=== PATIENT | male | born 1950 | race Caucasian/White ===

== ENCOUNTER 2018-07-04 16:49 | Emergency (ER) | payer OTHER, MEDICARE ==
[2018-07-04] MEDS ORDERED: ONDANSETRON 4 MG/2 ML VIAL IVP ONE (17:13)
[2018-07-04] MEDS ORDERED: NS 1,000 ML IV ONE (17:13)
--- NOTE | 2018-07-04 17:16 | EDPHY ---
H & P Stated Complaint: vomiting thursday and thursday,nausea today,diarrhea,fatigue Time Seen by Provider: 07/04/18 17:02 HPI/ROS: CHIEF COMPLAINT: Nausea, vomiting, and diarrhea HISTORY OF PRESENT ILLNESS: This is a 68-year-old male in general good health who presents with nausea, vomiting, and diarrhea. He began vomiting night before last and vomited throughout the night. He vomited once last night. Yesterday developed diarrhea, which seems to be slowing, he has had 3 diarrheal stools today. He continues with nausea but has not vomited today. He has been able to eat some saltine crackers and banana and has been able to take some fluids. He feels fatigued. He denies abdominal pain. He has not had fever. No urinary symptoms. REVIEW OF SYSTEMS: A ten system review of systems was performed and is negative with the exception of the items mentioned in the HPI. Past medical history: 1. Hyperlipidemia 2. Depression Past surgical history: 1. Hip replacement 2. Hernia repair 3. Bunionectomy Social history: He lives with his . He does not use tobacco products. He drinks 1-2 alcoholic beverages 5 times weekly. 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 General Appearance: Alert. Vital signs reviewed. Blood pressure 125/76. Heart rate 56 at triage. Afebrile. Eyes: Pupils equal and round, no conjunctival injection, no discharge. Anicteric. ENT, Mouth: Mucous membranes are moist, no oropharyngeal erythema or edema. Neck: No lymphadenopathy, supple. Respiratory: Lungs are clear to auscultation; no wheezes, rales, or rhonchi. Cardiovascular: Regular rate and rhythm; no murmur, rub, or gallop. Gastrointestinal: Abdomen is soft and nontender, no masses or organomegaly, bowel sounds normal. Skin: Warm and dry, no rashes on exposed skin, normal color. Back: Nontender to palpation over the thoracolumbar spine. No CVAT. Extremities: No lower extremity edema, no calf tenderness or swelling. Neurological: Alert and oriented. Moving all four extremities easily and equally. Psychiatric: Normal affect. - Personal History Current Tetanus Diphtheria and Acellular Pertussis (TDAP): Yes Tetanus Vaccine Date: unsure - Medical/Surgical History Hx Asthma: No Hx Chronic Respiratory Disease: No Hx Diabetes: No Hx Cardiac Disease: No Hx Renal Disease: No Hx Cirrhosis: No Hx Alcoholism: No Hx HIV/AIDS: No Hx Splenectomy or Spleen Trauma: No Other PMH: hernia repair, left hip repair,depression,high cholesterol - Social History Smoking Status: Never smoked Constitutional: Initial Vital Signs Temperature (C) 36.6 C 07/04/18 16:57 Heart Rate 58 L 07/04/18 16:57 Respiratory Rate 16 07/04/18 16:57 Blood Pressure 125/76 H 07/04/18 16:57 O2 Sat (%) 95 07/04/18 16:57 O2 Delivery Mode Room Air Allergies/Adverse Reactions: acetaminophen [From Percocet] Allergy (Verified 07/04/18 16:56) oxycodone [From Percocet] Allergy (Verified 07/04/18 16:56) Home Medications: Medication Instructions Recorded Flomax 07/04/18 Ondansetron Odt [Zofran Odt 4 mg 4 mg PO Q4 PRN #10 tab 07/04/18 (RX)] Prozac 20 MG (*) 07/04/18 SIMVASTATIN 07/04/18 Medical Decision Making ED Course/Re-evaluation: N,V,D over past 48 hours with persistent nausea. 1 L IV normal saline and Zofran 4 mg IV will be administered. 5:40 PM.. Patient states that he is starting to feel better (after 500 ml ivf and zofran). 6:30 PM. Abdomen soft and nontender. No vomiting or diarrhea in ED. Tolerated ice chips. Will DC home with prepack zofran and RX for zofran. Danger signs reviewed. He has not had abdominal pain and I do not suspect cholecystitis, pancreatitis, or appendicitis. There is nothing to suggest that this is a surgical problem. He has no urinary symptoms. He does not have a bowel obstruction. He has not had bloody diarrhea. His diarrhea and vomiting have been subsiding. This is likely a viral gastroenteritis. - Data Points Medications Given: Discontinued Medications Sodium Chloride (Ns) 1,000 mls @ 0 mls/hr IV EDNOW ONE; Wide Open PRN Reason: Protocol Stop: 07/04/18 17:14 Last Admin: 07/04/18 17:21 Dose: 1,000 mls Ondansetron HCl (Zofran) 4 mg IVP EDNOW ONE Stop: 07/04/18 17:14 Last Admin: 07/04/18 17:22 Dose: 4 mg Departure - Departure Disposition: Home, Routine, Self-Care Clinical Impression: Gastroenteritis Condition: Good Instructions: Gastroenteritis (ED) Additional Instructions: Use the Zofran, 4 mg under tongue, as needed for nausea. I recommend taking 1 before you try to eat again. If you develop fever, abdominal pain, worsening vomiting and diarrhea--you should be re-evaluated. Referrals: Coty Cam MD [Primary Care Provider] - As per Instructions Prescriptions: Ondansetron Odt [Zofran Odt 4 mg (RX)] 4 mg PO Q4 PRN #10 tab PRN Reason: nausea
[2018-07-04] MEDS ORDERED: ONDANSETRON 4MG PREPACK#2 BTL TAKEHOME ONE (18:32)
[2018-07-04 18:56] VITALS: BP 132/76
== END 2018-07-04 18:53 | disposition home or self-care (01) ==
LOC: CED 16:49
DX: K52.9 Noninfective gastroenteritis and colitis, unspecified (principal); E78.5 Hyperlipidemia, unspecified; E86.9 Volume depletion, unspecified
CPT/HCPCS: 96361; 96374; 99284; J2405